=== PATIENT | female | born 1995 | race Two or more races ===

== ENCOUNTER 2022-07-20 08:01 | Outpatient (CLI) | payer OTHER | END 2022-07-20 08:10 | disposition home or self-care (01) | LOC: RAD 08:01 | PROVIDERS: ATTEND Obstetrics & Gynecology | DX: N70.11 Chronic salpingitis (principal); Z01.419 Encounter for gynecological examination (general) (routine) without abnormal findings; Z11.3 Encounter for screening for infections with a predominantly sexual mode of transmission ==